=== PATIENT | male | born 1980 | race African-American/Black ===

== ENCOUNTER 2019-02-11 21:40 | Emergency (ER) | payer MEDICARE, MEDICAID ==
[~2019-02-11] VITALS: Ht 160 cm; Wt 68.0 kg
[2019-02-11] MEDS ORDERED: IBUPROFEN 600MG TABLET PO ONE (23:45)
[2019-02-11] MEDS ORDERED: METHOCARBAMOL 500MG TABLET PO ONE (23:45)
[2019-02-12] MEDS ORDERED: ACETAMINOPHEN WITH CODEINE 300/30MG TABLET PO ONE (01:15)
[2019-02-12 01:41] VITALS: BP 126/81
== END 2019-02-12 01:42 | disposition home or self-care (01) ==
LOC: ER 21:40
DX: S16.1XXA Strain of muscle, fascia and tendon at neck level, initial encounter (principal); J45.909 Unspecified asthma, uncomplicated; F17.200 Nicotine dependence, unspecified, uncomplicated; V49.9XXA Car occupant (driver) (passenger) injured in unspecified traffic accident, initial encounter; Y93.89 Activity, other specified; Y92.89 Other specified places as the place of occurrence of the external cause; Y99.8 Other external cause status
CPT/HCPCS: 72040; 99284

== ENCOUNTER 2023-03-13 15:11 | Emergency (ER) | payer MEDICARE, MEDICAID ==
[~2023-03-13] VITALS: Ht 160 cm; Wt 71.7 kg
[2023-03-13 16:01] VITALS: BP 149/98
[2023-03-13] MEDS ORDERED: AMOX-494 MT (18:15)
[2023-03-13] MEDS ORDERED: HYDR-4001 MT (18:15)
== END 2023-03-13 18:57 | disposition home or self-care (01) ==
LOC: ER 15:11
DX: K08.89 Other specified disorders of teeth and supporting structures (principal); J45.909 Unspecified asthma, uncomplicated
CPT/HCPCS: 99283

== ENCOUNTER 2023-04-04 17:26 | Emergency (ER) | payer MEDICARE, MEDICAID ==
[~2023-04-04] VITALS: Ht 160 cm; Wt 71.8 kg
[~2023-04-04 17:26] MED LIST: AMOX-494 MT; HYDR-4001 MT
[2023-04-04 17:42] VITALS: BP 151/108; PULSE 64; RESP 16; TEMP 98.2; O2SAT 99
[2023-04-04] MEDS ORDERED: IBUP-2030 MT (19:31)
== END 2023-04-04 20:14 | disposition home or self-care (01) ==
LOC: ER 17:53
DX: K08.89 Other specified disorders of teeth and supporting structures (principal); I10 Essential (primary) hypertension; J45.909 Unspecified asthma, uncomplicated
CPT/HCPCS: 99281

== ENCOUNTER 2024-06-11 03:32 | Emergency (ER) | payer MEDICAID, MEDICARE, OTHER ==
[~2024-06-11] VITALS: Ht 177.8 cm; Wt 91.0 kg
[~2024-06-11 03:32] MED LIST changes: +IBUP-2030 MT
[2024-06-11 03:33] VITALS: O2SAT 92
[2024-06-11] MEDS ORDERED: ACTIVATED CHARCOAL 50 G/240 ML TUBE NG ONE (03:45)
[2024-06-11] MEDS: MAGNESIUM 2 G PREMIX 50 ML IV ONE (03:56)
[2024-06-11 04:02] LABS: BASOPHILS % 0.7 % (0.0-2.0); EOSINOPHILS % 3.9 % (0.0-5.0); HEMATOCRIT. 43.7 % (42.0-52.0); HEMOGLOBIN. 14.9 g/dL (14.0-18.0); LYMPHOCYTES % 25.2 % (20.0-50.0); MEAN CORPUSCULAR HGB CONC 34.2 g/dL (31.0-37.0); MEAN CORPUSCULAR VOLUME 90.5 fL (80.0-94.0); MEAN PLATELET VOLUME 10.1 fl (7.4-10.4); MONOCYTES % 13.8 % (2.0-8.0); NEUTROPHILS % 56.4 % (40.0-76.0); PLATELET 175 x1000/uL (130-400); RED BLOOD CELL COUNT 4.82 mill/uL (4.7-6.1); RED CELL DISTRIBUTION WIDTH 13.7 % (11.6-14.6); WHITE BLOOD COUNT 8.5 x1000/uL (4.5-11.0)
[2024-06-11 04:08] LABS: CHLORIDE 101 mEq/L (98-107); POTASSIUM 3.1 mEq/L (3.5-5.1); SODIUM 135 mEq/L (136-145)
[2024-06-11 04:09] LABS: CALCIUM 9.4 mg/dL (8.7-10.4); CARBON DIOXIDE 23 mEq/L (21-32)
[2024-06-11 04:14] LABS: CREATININE 3.9 mg/dL (0.6-1.3); GLUCOSE 124 mg/dL (70-105); UREA NITROGEN BLOOD 14 mg/dL (9-23)
[2024-06-11 04:15] LABS: TROPONIN I HIGH SENSITIVITY 13 ng/L (3.0-53)
[2024-06-11 04:16] LABS: ACETAMINOPHEN < 2 ug/mL (10-30); CREATINE KINASE 277 IU/L (46-171); PHOSPHORUS 3.1 mg/dL (2.5-4.9)
[2024-06-11 04:22] LABS: ETHANOL BLOOD < 10 mg/dL (<10)
[2024-06-11] MEDS: ACTIVATED CHARCOAL 50 G/240 ML TUBE NG NR (04:31)
[2024-06-11 04:46] LABS: ALANINE AMINOTRANSFERASE 16 IU/L (10-49); ALBUMIN 4.6 g/dL (3.2-4.8); ASPARTATE AMINOTRANSFERASE 24 IU/L (<34); BILIRUBIN DIRECT 0.3 mg/dL (<=3.0); BILIRUBIN TOTAL 0.9 mg/dL (0.1-1.0); PROTEIN TOTAL 7.5 g/dL (6.0-8.3)
[2024-06-11] MEDS: SODIUM CHLORIDE 0.9% 1,000 ML IV ONE (05:06)
[2024-06-11 05:13] LABS: CLARITY URINE CLOUDY (CLEAR); COLOR URINE YELLOW (YELLOW); GLUCOSE URINE NEGATIVE (NEGATIVE); KETONES URINE TRACE (NEGATIVE); LEUKOCYTE ESTERASE URINE NEGATIVE (NEGATIVE); NITRITE URINE NEGATIVE (NEGATIVE); OCCULT BLOOD URINE 1+ (NEGATIVE); PH URINE 5.5 (4.5-8.0); PROTEIN URINE 2+ (NEGATIVE); SPECIFIC GRAVITY URINE 1.016 (1.005-1.030)
[2024-06-11 05:25] LABS: *AMPHETAMINES SCREEN URINE PRESUMPTIVE POSITIVE (NEGATIVE); *BARBITURATES SCREEN URINE NEGATIVE (NEGATIVE); *BENZODIAZEPINES SCREEN URINE NEGATIVE (NEGATIVE); *COCAINE SCREEN URINE NEGATIVE (NEGATIVE); CANNABINOID URINE SCREEN NEGATIVE (NEGATIVE); ECSTASY MDMA SCREEN URINE CONF.TEST INDICATED (NEGATIVE); METHADONE URINE SCREEN NEGATIVE (NEGATIVE); OPIATES URINE SCREEN NEGATIVE (NEGATIVE); PHENCYCLIDINE URINE SCREEN NEGATIVE (NEGATIVE)
[2024-06-11 05:30] VITALS: TEMP 36.55848
[2024-06-11 06:38] LABS: BACTERIA URINE TRACE; SQUAMOUS EPITHELIAL CELL URINE NONE SEEN /lpf (RARE/1+)
[2024-06-11 07:56] LABS: CALCIUM 8.8 mg/dL (8.7-10.4)
[2024-06-11 09:30] VITALS: BP 125/66; PULSE 106; RESP 16; O2SAT 95
[2024-06-11 09:55] LABS: CREATININE 3.2 mg/dL (0.6-1.3)
== END 2024-06-11 10:36 | disposition left against medical advice (07) ==
LOC: ER 03:32 → CANBEDREQ 19:39
DX: T45.0X2A Poisoning by antiallergic and antiemetic drugs, intentional self-harm, initial encounter (principal); N17.9 Acute kidney failure, unspecified; J45.909 Unspecified asthma, uncomplicated; Z20.822 Contact with and (suspected) exposure to COVID-19; X58.XXXA Exposure to other specified factors, initial encounter
CPT/HCPCS: 80076; 80305; 80048; 81003; 80307; 80329; 80320; 82310; 82550; 82565; 83735; 84100; 84132; 85025; 84484; 36415; 71045; 74176; 96365; 99285; 87426; J3475; J7030; Z7610 ×2; G0480

== ENCOUNTER 2025-04-21 12:53 | Inpatient (IN) | payer OTHER ==
[~2025-04-21] VITALS: Ht 160 cm; Wt 78.9 kg
[2025-04-21 14:01] LABS: BASOPHILS % 0.6 % (0.0-2.0); EOSINOPHILS % 6.7 % (0.0-5.0); HEMATOCRIT. 49.4 % (42.0-52.0); HEMOGLOBIN. 16.8 g/dL (14.0-18.0); LYMPHOCYTES % 26.0 % (20.0-50.0); MEAN PLATELET VOLUME 11.4 fl (7.4-10.4); MONOCYTES % 8.8 % (2.0-8.0); NEUTROPHILS % 57.9 % (40.0-76.0); PLATELET 208 x1000/uL (130-400); RED BLOOD CELL COUNT 5.58 mill/uL (4.7-6.1); RED CELL DISTRIBUTION WIDTH 13.9 % (11.6-14.6)
[2025-04-21] MEDS: SODIUM CHLORIDE 0.9% 1,000 ML IV ONE ×3 (14:05→18:26)
[2025-04-21 14:16] LABS: UREA NITROGEN BLOOD 16 mg/dL (9-23)
[2025-04-21 14:18] LABS: ASPARTATE AMINOTRANSFERASE 40 IU/L (<34)
[2025-04-21 14:19] LABS: BILIRUBIN DIRECT 0.1 mg/dL (<=3.0); BILIRUBIN TOTAL 0.5 mg/dL (0.1-1.0); PROTEIN TOTAL 8.0 g/dL (6.0-8.3)
[2025-04-21 14:23] LABS: CREATININE 1.7 mg/dL (0.6-1.3)
[2025-04-21 16:34] LABS: CLARITY URINE CLEAR (CLEAR); GLUCOSE URINE 3+ (NEGATIVE); KETONES URINE 3+ (NEGATIVE); LEUKOCYTE ESTERASE URINE NEGATIVE (NEGATIVE); NITRITE URINE NEGATIVE (NEGATIVE); OCCULT BLOOD URINE NEGATIVE (NEGATIVE); PH URINE 5.0 (4.5-8.0); PROTEIN URINE NEGATIVE (NEGATIVE); SPECIFIC GRAVITY URINE 1.029 (1.005-1.030); UROBILINOGEN URINE 0.2 E.U./dL (0.2-1.0)
[2025-04-21] MEDS: BLOOD SUGAR DIAGNOSTIC STRIP TEST SCH ×2 (17:00→21:45)
[2025-04-21 17:20] LABS: COLOR URINE STRAW (YELLOW)
[2025-04-21 17:21] LABS: BACTERIA URINE NONE SEEN; RBC URINE NONE SEEN /hpf (0-2); SQUAMOUS EPITHELIAL CELL URINE NONE SEEN /lpf (RARE/1+); WBC URINE 0-2 /hpf (0-2)
[2025-04-21] MEDS: INSULIN LISPRO 100 UNITS/ML SUBCUT SCH ×2 (18:22→22:25)
[2025-04-21] MEDS: INSULIN LISPRO 100 UNITS/ML SUBCUT STA (18:37)
[2025-04-21 20:00] VITALS: BP 116/77; PULSE 89; RESP 16; TEMP 36.418
[2025-04-21] MEDS ORDERED: DEXTROSE 50% WATER 50ML SYRINGE IV PRN (21:00)
[2025-04-21] MEDS: SODIUM CHLORIDE 0.9% 1,000 ML IV SCH (21:46)
[2025-04-21] MEDS: INSULIN GLARGINE 100 UNITS/ML SUBCUT SCH (23:16)
[2025-04-22] VITALS: BP 117/82; PULSE 76; RESP 20; TEMP 36.5; O2SAT 99
[2025-04-22 04:00] VITALS: BP 129/83; PULSE 85; RESP 20; TEMP 36.7; O2SAT 100
[2025-04-22 08:00] VITALS: BP 113/70; PULSE 78; RESP 20; TEMP 36.5; O2SAT 97
[2025-04-22 11:07] LABS: BASOPHILS % 0.4 % (0.0-2.0); EOSINOPHILS % 8.5 % (0.0-5.0); HEMATOCRIT. 43.4 % (42.0-52.0); HEMOGLOBIN. 14.8 g/dL (14.0-18.0); LYMPHOCYTES % 28.6 % (20.0-50.0); MEAN PLATELET VOLUME 10.9 fl (7.4-10.4); MONOCYTES % 9.6 % (2.0-8.0); NEUTROPHILS % 52.9 % (40.0-76.0); PLATELET 178 x1000/uL (130-400); RED BLOOD CELL COUNT 4.99 mill/uL (4.7-6.1); RED CELL DISTRIBUTION WIDTH 13.5 % (11.6-14.6)
[2025-04-22 11:37] LABS: LDL CHOLESTEROL 105.0 mg/dL (5-100); TRIGLYCERIDE 177.0 mg/dL (0-150)
[2025-04-22 12:00] VITALS: BP 124/81; PULSE 83; RESP 20; TEMP 36.7; O2SAT 99
[2025-04-22 13:16] LABS: CREATININE 1.0 mg/dL (0.6-1.3); UREA NITROGEN BLOOD 10 mg/dL (9-23)
[2025-04-22 16:00] VITALS: BP 130/83; PULSE 80; RESP 15; TEMP 36.5; O2SAT 98
[2025-04-22 18:47] VITALS: BP 130/83; PULSE 80; TEMP 97.7; O2SAT 98
== END 2025-04-22 19:15 | disposition home or self-care (01) | DRG 420 ==
LOC: ER 12:53 → 7EST 18:12 → EDBEDREQ 18:14 → EDBEDREQTM 18:14 → ENRESERV 18:32
PROVIDERS: ADMIT Internal Medicine; ATTEND Internal Medicine
DX: E11.10 Type 2 diabetes mellitus with ketoacidosis without coma (principal); N17.0 Acute kidney failure with tubular necrosis; E66.9 Obesity, unspecified; F17.210 Nicotine dependence, cigarettes, uncomplicated; J45.909 Unspecified asthma, uncomplicated; Z68.30 Body mass index [BMI] 30.0-30.9, adult
CPT/HCPCS: 36415; 80048; 80061; 80076; 81003; 82010; 82962; 83036; 85025; 99285; J1815; J7030